=== PATIENT | female | born 1980 | race Caucasian/White ===

== ENCOUNTER → 2018-06-28 15:38 | Outpatient (CLI) | payer OTHER, SELFPAY ==
[2018-06-28 15:56] LABS: Basophils # 0.1 K/mm3 (0-0.2); Basophils % 0.8 % (0.1-2.0); Eosinophils # 0.4 K/mm3 (0.0-0.4); Eosinophils % 4.7 % (0.1-12.0); Hemoglobin 13.4 g/dL (12.2-16.2); Lymphocytes # 2.5 K/mm3 (0.7-4.5); Lymphocytes % 28.7 K/mm3 (10-50); Mean Corpuscular HGB Conc 33.5 g/dL (31.8-35.4); Mean Corpuscular Hemoglobin 31.8 pg (27.0-31.2); Mean Corpuscular Volume 95.1 fl (81-99); Mean Platelet Volume 6.8 fl (7.4-10.4); Monocytes # 0.3 K/mm3 (0.1-1.0); Monocytes % 3.7 % (1.7-9.3); Neutrophils # 5.5 K/mm3 (1.8-7.8); Neutrophils % 62.1 % (37.0-80.0); Platelet Count 236 K/mm3 (142-424); White Blood Count 8.9 K/mm3 (4.8-10.8)
[2018-06-28 18:37] LABS: Alanine Aminotransferase 25 U/L (12-78); Albumin Level 4.1 gm/dL (3.4-5.0); Albumin/Globulin Ratio 1.4 (1.1-1.8); Alkaline Phosphatase 71 U/L (46-116); Anion Gap 15.3 mEq/L (5-15); Bilirubin,Total 0.3 mg/dL (0.2-1.0); Blood Urea Nitrogen 15 mg/dL (7-18); Calcium 8.8 mg/dL (8.5-10.1); Carbon Dioxide 26 mmol/L (21.0-32.0); Chloride 105 mmol/L (98-107); Creatinine,Serum 1.01 mg/dL (0.55-1.02); Estimated Glomerular Filt Rate 61 ml/min (>60); GFR (African American) 74 ML/MIN (>60); Glucose 91 mg/dL (74-106); Sodium 142 mmol/L (136-145); Total Protein,Serum 7.1 gm/dL (6.4-8.2)
[2018-06-28 18:53] LABS: Aspartate Amino Transferase 17 U/L (15-37); Potassium 4.3 mmoL/L (3.5-5.1)
== END ==
PROVIDERS: Visit Provider Pediatrics
DX: Z79.899 Other long term (current) drug therapy (principal); Q82.8 Other specified congenital malformations of skin
CPT/HCPCS: 36415; 80053; 85025

== ENCOUNTER 2019-04-16 16:02 | Emergency (ER) | payer OTHER, SELFPAY ==
[2019-04-16 16:15] VITALS: BP 118/75; PULSE 89; RESP 20; TEMP 37.6; O2SAT 100; BMI 21.7
--- NOTE | 2019-04-16 16:29 | HMH.EDUTC ---
[facility] [place] [facility] [place] Clinical Impression: Cellulitis and abscess of head Disposition: Home, Self-Care Condition on Discharge: Good Instructions: Cellulitis, DI for Cellulitis -- Adult, DI for Skin Abscess, Clindamycin Additional Instructions: *Start antibiotic(s) immediately and be sure to take as ordered for the FULL length of time although you may be feeling better or start to see improvement in the next 24-48 hours *Monitor closely. Outlined redness so that you can monitor easier. Follow up immediately for new or worsening symptoms including but not limited to redness, swelling, streaking from site fever or chills. *Warm compress 15 minutes 3-4 times day *Never squeeze or pop these on your own. Seek immediate medical attention next time this occurs *Monitor Temp. Tylenol every 4 hours as needed and ibuprofen every 6 hours as needed (as long as your primary care doctor has told you that it is ok to take both. For fever, aches, pain. ER if no less that 101 despite Tylenol and ibuprofen Follow up with your family doctor/primary care physician in the next 48-72 hours if no improvement and also follow up for re-evaluation of cellulitis and abscess to make sure that medication is working to clear up the infection Return if needed Straight To ER if you notice and red streaks, fever or worsening of abscess/lesion Prescriptions: Clindamycin HCl [Clindamycin HCl 300mg Cap] 300 mg PO Q6 10 Days #40 cap Referrals: Twan Albarran MD [Referring] - Georgia Garnica MD [Consulting Physician] - Provider,MD Iliana [Primary Care Provider] - As needed (you was given list of accepting doctors, call make appointment and follow up to make sure that medication is clearing the infection) Forms: Work/School Release Time of Disposition: 16:42 Medical Decision Making - Abraham Inquiry Pt receiving controlled substance: No Abraham was queried for this patient: No Vital Signs: 04/16/19 16:15 Temperature 99.7 F H Temperature Source Oral Pulse Rate [Right Brachial] 89 Respiratory Rate 20 Blood Pressure [Right Arm] 118/75 Blood Pressure Mean [Right Arm] 89 Blood Pressure Source [Right Arm] Automatic Cuff Blood Pressure Position [Right Arm] Sitting 02 Sat by Pulse Oximetry 100 Oxygen Delivery Method Room Air [facility] [place] [facility] [place] - General Stated complaint: knot on her neck throbbing Time Seen by Provider: 04/16/19 16:29 Mode of Arrival: Family Vehicle Source of Information: Patient Limitations: No Limitations Description of Symptoms (Recalled from Triage Doc. 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 State that she noticed a small raised area on the back of her head State that it is sore to touch and feeling warm State that has continued to get worse and she noticed some redness behind ear and hurts when it is touched or when she moves her head and it pulls the skin on her head - Related Data Previous Rx's Medication Instructions Recorded Clindamycin HCl [Clindamycin HCl 300 mg PO Q6 10 Days #40 cap 04/16/19 300mg Cap] Allergies Allergy/AdvReac Type Severity Reaction Status Date / Time No Known Allergies Allergy Verified 12/21/18 13:48 - Worker's Comp Is this a Worker's Comp case?: No [facility] History - Hepatitis A Screen Drug use history?: No High risk sexual behaviors?: No History of sexually transmitted infection?: No Currently employed?: No Childcare worker?: No Do you have indoor plumbing?: Yes Do you have electricity?: Yes Attestation statement:: This patient has been screened for Hepati
--- NOTE | 2019-04-16 16:35 | ED_ITS ---
[facility] [place] Clinical Impression: Cellulitis and abscess of head Disposition: Home, Self-Care Condition on Discharge: Good Instructions: Cellulitis, DI for Cellulitis -- Adult, DI for Skin Abscess, Clindamycin Additional Instructions: *Start antibiotic(s) immediately and be sure to take as ordered for the FULL length of time although you may be feeling better or start to see improvement in the next 24-48 hours *Monitor closely. Outlined redness so that you can monitor easier. Follow up immediately for new or worsening symptoms including but not limited to redness, swelling, streaking from site fever or chills. *Warm compress 15 minutes 3-4 times day *Never squeeze or pop these on your own. Seek immediate medical attention next time this occurs *Monitor Temp. Tylenol every 4 hours as needed and ibuprofen every 6 hours as needed (as long as your primary care doctor has told you that it is ok to take both. For fever, aches, pain. ER if no less that 101 despite Tylenol and ibuprofen Follow up with your family doctor/primary care physician in the next 48-72 hours if no improvement and also follow up for re-evaluation of cellulitis and abscess to make sure that medication is working to clear up the infection Return if needed Straight To ER if you notice and red streaks, fever or worsening of abscess/lesion Prescriptions: Clindamycin HCl [Clindamycin HCl 300mg Cap] 300 mg PO Q6 10 Days #40 cap Referrals: Twan Albarran MD [Referring] - Georgia Garnica MD [Consulting Physician] - Provider,MD Iliana [Primary Care Provider] - As needed (you was given list of accepting doctors, call make appointment and follow up to make sure that medication is clearing the infection) Forms: Work/School Release Time of Disposition: 16:42 Medical Decision Making - Abraham Inquiry Pt receiving controlled substance: No Abraham was queried for this patient: No Vital Signs: 04/16/19 16:15 Temperature 99.7 F H Temperature Source Oral Pulse Rate [Right Brachial] 89 Respiratory Rate 20 Blood Pressure [Right Arm] 118/75 Blood Pressure Mean [Right Arm] 89 Blood Pressure Source [Right Arm] Automatic Cuff Blood Pressure Position [Right Arm] Sitting 02 Sat by Pulse Oximetry 100 Oxygen Delivery Method Room Air [facility] [place] - General Stated complaint: knot on her neck throbbing Time Seen by Provider: 04/16/19 16:29 Mode of Arrival: Family Vehicle Source of Information: Patient Limitations: No Limitations Description of Symptoms (Recalled from Triage Doc. 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
[2019-04-16 16:44] VITALS: BP 118/75; PULSE 89; RESP 20; TEMP 37.6; O2SAT 100
== END 2019-04-16 16:47 | disposition home or self-care (01) ==
PROVIDERS: Emergency Provider Nurse Practitioner
DX: L03.811 Cellulitis of head [any part, except face] (principal); F17.210 Nicotine dependence, cigarettes, uncomplicated
CPT/HCPCS: 99201

== ENCOUNTER 2022-04-21 15:50 | Emergency (ER) | payer BC, SELFPAY ==
[2022-04-21 16:10] VITALS: BP 119/75; PULSE 73; RESP 19; TEMP 36.8; O2SAT 100; BMI 21.1
--- NOTE | 2022-04-21 16:54 | HMH.EDUTC ---
[facility] – [place] Disposition Clinical Impression: Vasculitis, Sunburn Disposition: Home, Self-Care Condition on Discharge: Good Instructions: DI for Sunburn, Sunburn, DI for Vasculitis, Silver Sulfadiazine Additional Instructions: Cool compresses on chest and back may help with pain from sunburn Elevate legs when sitting to help with swelling Take medication as prescribed Start oral steriods Return if needed Straight to ER if any life threatening symptoms Follow up with your Family Doctor if no improvement or any worsening of symptoms Prescriptions: cephALEXin [cephALEXin 500mg capsule*] 500 mg PO Q8H 7 Days #21 cap Transmission Status: Pending to [id number] methylPREDNISolone [Medrol 4mg tab] 4 mg PO DIRECTED #21 tab Transmission Status: Pending to [id number] Silver Sulfadiazine [Silvadene Cream 400gm] 1 applic TP BID #400 gm Transmission Status: Pending to [id number] Referrals: Troy Whaley MD [Primary Care Provider] - As needed Forms: Work/School Release Time of Disposition: 17:08 Medical Decision Making - Abraham Inquiry Pt receiving controlled substance: No Abraham was queried for this patient: No Vital Signs: 04/21/22 16:10 Temperature 98.3 F Temperature Source Oral Pulse Rate [Right Brachial] 73 Respiratory Rate 19 Blood Pressure [Right Arm] 119/75 Blood Pressure Mean [Right Arm] 89 Blood Pressure Source [Right Arm] Automatic Cuff Blood Pressure Position [Right Arm] Sitting 02 Sat by Pulse Oximetry 100 Oxygen Delivery Method Room Air Medical Decision Narrative: medication discussed and dosed per pharmacy [facility] [place] HPI - General Stated complaint: possible sun poison Time Seen by Provider: 04/21/22 16:54 Mode of Arrival: Ambulatory Source of Information: Patient Limitations: No Limitations Description of Symptoms (Recalled from Triage Doc. by RN): PATIENT REPORTS A SUNBURN THAT HAPPENED OVER THE WEEKEND. C/O BLISTERS TO CHEST, BACK AND LEGS, AND RASH TO BILATERAL LOWER LEGS AND ANKLES. HEENT Symptoms (Recalled from RN notes): No Resp Symptoms (Recalled from RN notes): No Skin Symptoms (Recalled from RN notes): Yes MS Symptoms (Recalled from RN notes): No Functional Status (Recalled from RN notes): WNL - History of Present Illness Provider Complaint: Patient states that she was out in the sun over the weekend and got bad sunburn States that she has blisters on her chest and back also has red rash on bilateral lower extremities with some mild swelling - Related Data Previous Rx's Medication Instructions Recorded Silver Sulfadiazine [Silvadene 1 applic TP BID #400 gm 04/21/22 Cream 400gm] cephALEXin [cephALEXin 500mg 500 mg PO Q8H 7 Days #21 cap 04/21/22 capsule*] methylPREDNISolone [Medrol 4mg 4 mg PO DIRECTED #21 tab 04/21/22 tab] Allergies Allergy/AdvReac Type Severity Reaction Status Date / Time No Known Allergies Allergy Verified 12/21/18 13:48 - Worker's Comp Is this a Worker's Comp case?: No [facility] History - Hepatitis A Screen Attestation statement:: This patient has been screened for Hepatitis A risk factors. 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 2004- Lap Cholecystectomy. 2006- Primary . 2008- D&E. 2013- Repeat , PPBTL. 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
[2022-04-21 17:15] VITALS: BP 119/75; PULSE 73; RESP 19; TEMP 36.8; O2SAT 100
== END 2022-04-21 17:18 | disposition home or self-care (01) ==
PROVIDERS: Emergency Provider Nurse Practitioner; PCP Family Medicine
DX: L95.9 Vasculitis limited to the skin, unspecified (principal)
CPT/HCPCS: 99212; G0463

== ENCOUNTER 2023-12-14 10:39 | Emergency (ER) | payer BC, SELFPAY ==
[2023-12-14 11:00] VITALS: BP 122/69; PULSE 78; RESP 19; TEMP 36.9; O2SAT 98; BMI 25.8
--- NOTE | 2023-12-14 11:09 | ED_ITS ---
Discharge Plan Disposition Patient Disposition: Home, Self-Care Condition: Good Prescriptions Prescriptions: New amoxicillin 500 mg capsule 500 mg PO BID 10 Days Qty: 20 0RF Referrals Follow up/Referrals: Provider,Referral, MD [Primary Care Provider] - See instructions Activity Restrictions/Add. Instructions Additional Instructions/Restrictions: *Monitor Temp, Over the counter Motrin or Tylenol as directed/as needed Tylenol every 4 hours and Motrin every 6 hours (as long as your family doctor has told you that you can take it) for fever or pain. and straight to ER if unable to lower temp less than 101.0 after medication given *Warm salt water gargles may help to soothe the throat *Throat Lozenges? *Warm fluids like tea with honey may help to soothe the throat? *Sleep elevated *Humidifier/Vaporizer *If you did not take Penicillin shot or was unable to, start taking antibiotic immediately and make sure that you take it for the FULL length of time although you should start to feel better in 24-48 hours *change toothbrush and toothpaste 24-48 hours after starting to take antibiotics so you do not reinfect yourself Monitor Temp. Tylenol and/or Ibuprofen as needed. ER if fever is no less than 101 despite alternating Tylenol and Ibuprofen * Encourage fluids, water, Gatorade, powerade, pedialyte if infant/toddler/or child *Cold fluids, popsicles and ice cream may feel good on his throat Follow up IMMEDIATELY for new or worsening symptoms or no Noticeable improvement over the next 48-72 hours. 911 for difficulty breathing or swallow ing Clinical Impressions Clinical Impression: Strep throat Instructions Patient Instructions: DI for Strep Throat, Strep Throat Discharge ED Provider[place]i Mar[place] [facility] [place] General Stated complaint: sore throat Mode of Arrival: Ambulatory Source of Information: Patient Limitations: No Limitations Time Seen by Provider: 12/14/23 11:09 Description of Symptoms (Recalled from Triage Doc. by RN): PATIENT C/O SORE THROAT SINCE YESTERDAY HEENT Symptoms (Recalled from RN notes): Yes Resp Symptoms (Recalled from RN notes): No Skin Symptoms (Recalled from RN notes): No MS Symptoms (Recalled from RN notes): No Functional Status (Recalled from RN notes): WNL History of Present Illness Provider Complaint: Patient states that she started yesterday with very bad sore throat States that it feels like she is swallowing glass States today it was still hurting so she came in to get checked worried she may have strep throat Related Data Previous Rx's Medication Instructions Recorded amoxicillin 500 mg capsule 500 mg PO BID 10 days #20 caps 12/14/23 Allergies Allergy/AdvReac Type Severity Reaction Status Date / Time No Known Allergies Allergy Verified 12/21/18 13:48 Worker's Comp Is this a Worker's Comp case?: No [facility] Disclaimer: The information contained in this section may have been updated after the patient was seen, as this information can be updated by other users. Social History Smoking Status: Current every day smoker tobacco type: cigarettes packs per day: 1 alcohol intake: never current occupational status: employed Travel in the last 8 weeks: None household members: family housing: house ROS Obtained: Yes All systems reviewed & no additional complaints except as documented and Yes Systems reviewed as appropriate & no additional complaints except as documented Constitutional Constitutional: Reports system reviewed and no additional complaints, except as documented and Reports as per HPI ENT Ears, Nose, Mouth, and Throat: Reports system reviewed and no additional complaints, except as documented, Reports as per HPI and Reports sore throat Cardiovascular Cardiovascular: Reports system reviewed and no additional complaints, except as documented and Reports as per HPI Respiratory Respiratory: Reports system reviewed and no additional complaints, except as documented and Reports as per HPI Gastrointestinal Gastrointestingal: Reports system reviewed and no additional complaints, except as documented and as per HPI Physical Exam General General appearance: alert and in no apparent distress ENT ENT exam: Present mucous membranes moist Expanded ENT Exam Throat exam: Present tonsillar erythema Respiratory Respiratory exam: Present normal lung sounds bilaterally; Absent respiratory distress or wheezes Cardiovascular Cardiovascular exam: Present regular rate, normal rhythm and normal heart sounds Neurological Exam Neurological exam: Present alert, oriented X3 and normal gait Medical Decision Making Abraham Inquiry Pt receiving controlled substance: No Abraham was queried for this patient: No Vital Signs: 12/14/23 11:00 Temperature 98.4 F Temperature Source Oral Pulse Rate [Left Brachial] 78 Respiratory Rate 19 Blood Pressure [Left Arm] 122/69 Blood Pressure Mean [Left Arm] 86 Blood Pressure Source [Left Arm] Automatic Cuff Blood Pressure Position [Left Arm] Sitting 02 Sat by Pulse Oximetry 98 Oxygen Delivery Method Room Air Lab Data Lab results reviewed: Yes I reviewed the patient's lab results.
[2023-12-14 11:24] VITALS: BP 122/69; PULSE 78; RESP 19; TEMP 36.9; O2SAT 98
[2023-12-14 11:28] LABS: UTC Strep Screen (Rapid) Positive (Negative)
== END 2023-12-14 11:26 | disposition home or self-care (01) ==
PROVIDERS: Emergency Provider Nurse Practitioner
DX: J02.0 Streptococcal pharyngitis (principal); F17.210 Nicotine dependence, cigarettes, uncomplicated
CPT/HCPCS: 87880; 99212; 99214; G0463

== ENCOUNTER 2024-07-12 13:08 | Emergency (ER) | payer BC, SELFPAY ==
[2024-07-12 14:38] VITALS: BP 160/100; PULSE 69; RESP 16; TEMP 37; O2SAT 100; BMI 21.9
--- NOTE | 2024-07-12 14:43 | EXP.UTC ---
Discharge Plan Disposition Patient Disposition: Home, Self-Care Condition: Good Prescriptions Prescriptions: New omeprazole 20 mg capsule,delayed release(DR/EC) 20 mg PO DAILY Qty: 30 0RF sucralfate [Carafate] 1 gram tablet 1 g PO QIDP PRN (Reason: abdominal pain) Qty: 60 0RF ondansetron 4 mg Tablet,Disintegrating 4 mg PO Q8H PRN (Reason: Nausea) Qty: 12 0RF No Action amoxicillin 500 mg capsule 500 mg PO BID 10 Days Qty: 20 0RF Referrals Follow up/Referrals: Provider,Referral, MD [Primary Care Provider] - See instructions Activity Restrictions/Add. Instructions Additional Instructions/Restrictions: Drink plenty of fluids. Take tylenol for pain or fever. Take the medications as directed. Follow up with your regular doctor. GO TO THE ER FOR ANY WORSENING SYMPTOMS Clinical Impressions Clinical Impression: Abdominal pain, Gastritis Stand Alone Forms Stand Alone Forms: Work/School Release Instructions Patient Instructions: DI for Gastritis, Sucralfate, Omeprazole Print Language Print Language: Tajik Discharge ED Provider: Noe Hankins [facility] General Stated complaint: abd Pain Mode of Arrival: Ambulatory Source of Information: Patient Limitations: No Limitations Time Seen by Provider: 07/12/24 14:43 Description of Symptoms (Recalled from Triage Doc. by RN): c/o upper right abdomen pain that goes into her right back for 2.5 weeks with some nausea. Pt reports that it feels like a gallbladder attack butr she doesnt have a gallbladder. Denies any urination problems HEENT Symptoms (Recalled from RN notes): No Resp Symptoms (Recalled from RN notes): No Skin Symptoms (Recalled from RN notes): No MS Symptoms (Recalled from RN notes): No Functional Status (Recalled from RN notes): wnl History of Present Illness Provider Complaint: She c/o epigastric abdominal pain and tenderness intermittently for the past 2 weeks. She has had nausea, but she vomiting and diarrhea. Related Data Previous Rx's ?Medication ?Instructions ?Recorded amoxicillin 500 mg capsule 500 mg PO BID 10 days #20 caps 12/14/23 omeprazole 20 mg capsule,delayed 20 mg PO DAILY #30 caps 07/12/24 release ondansetron 4 mg disintegrating 4 mg PO Q8H PRN Nausea #12 tabs 07/12/24 tablet sucralfate 1 gram tablet (Carafate) 1 g PO QIDP PRN abdominal pain #60 07/12/24 tabs Allergies Allergy/AdvReac Type Severity Reaction Status Date / Time No Known Allergies Allergy Verified 12/21/18 13:48 Worker's Comp Is this a Worker's Comp case?: No [facility] Disclaimer: The information contained in this section may have been updated after the patient was seen, as this information can be updated by other users. Social History Smoking Status: Current every day smoker tobacco type: cigarettes packs per day: 1 alcohol intake: never current occupational status: employed Travel in the last 8 weeks: None household members: family housing: house ROS Obtained: Yes All systems reviewed & no additional complaints except as documented Constitutional Constitutional: Denies chills, Denies fever(s) and Reports poor appetite ENT Ears, Nose, Mouth, and Throat: Denies dizziness and Denies sore throat Cardiovascular Cardiovascular: Denies dyspnea Respiratory Respiratory: Denies chest congestion, Denies cough and Denies dyspnea Gastrointestinal Gastrointestingal: Reports as per HPI Genitourinary Female Genitourinary: Denies difficulty voiding, Denies dysuria, Denies hematuria, Denies urinary frequency, Denies urinary incontinence, Denies urinary hesitancy and Denies urinary urgency Musculoskeletal Musculoskeletal: Denies arthralgias Integumentary/Breasts Skin/Breast: Denies rash Neurologic Neurologic: Denies dizziness Physical Exam General General appearance: alert and in no apparent distress Head Head exam: atraumatic and normocephalic Eye Eye exam: Present normal appearance, PERRL and EOMI ENT EN
[2024-07-12 15:04] LABS: Apearance,Urine Clear (Clear); Bilirubin,Urine Negative (Negative); Blood, Urine Trace (Negative); Color,Urine Amber (Yellow); Glucose,Urine (UA) Negative (Negative); Ketones,Urine Negative (Negative); Protein,Urine Negative (Negative); Specific Gravity, Urine 1.025 (1.005-1.030); UTC Leukocyte Esterase,Urine Negative (Negative); Urobilinogen,Urine 0.2 EU/dl (0.2)
[2024-07-12 15:05] LABS: UTC Nitrate,Urine Negative (Negative)
[2024-07-12 16:30] LABS: Basophils # 0.1 K/mm3 (0-0.2); Basophils % 1.5 % (0.1-2.0); Eosinophils # 0.2 K/mm3 (0.0-0.4); Eosinophils % 2.7 % (0.1-12.0); Hematocrit 45.6 % (37.0-47.0); Hemoglobin 14.3 g/dL (12.2-16.2); Lymphocytes # 2.4 K/mm3 (0.7-4.5); Lymphocytes % 27.6 % (10-50); Mean Corpuscular HGB Conc 31.4 g/dL (31.8-35.4); Mean Corpuscular Hemoglobin 31.9 pg (27.0-31.2); Mean Corpuscular Volume 101.4 fl (81-99); Mean Platelet Volume 8.2 fl (7.4-10.4); Monocytes # 0.4 K/mm3 (0.1-1.0); Monocytes % 4.8 % (1.7-9.3); Neutrophils # 5.6 K/mm3 (1.8-7.8); Neutrophils % 63.5 % (37.0-80.0); Platelet Count 236 K/mm3 (142-424); Red Cell Distribution Width 13.8 % (11.5-17.5); White Blood Count 8.8 K/mm3 (4.8-10.8)
[2024-07-12 16:31] LABS: Albumin Level 4.8 g/dl (3.5-5.0); Chloride 108 mmol/L (98-107); Sodium 140 mmol/L (136-145)
[2024-07-12 16:34] LABS: Alanine Aminotransferase 20 U/L (12-78); Albumin/Globulin Ratio 1.7 (1.1-1.8); Alkaline Phosphatase 70 U/L (38-126); Amylase 65 U/L (30-110); Aspartate Amino Transferase 33 U/L (14-36); Bilirubin,Total 0.5 mg/dl (0.2-1.3); Blood Urea Nitrogen 11 mg/dl (7-17); Calcium 9.3 mg/dl (8.4-10.2); Carbon Dioxide 26 mmol/L (22.0-30.0); Creatinine Clearance Estimated 79 mL/min (50-200); Estimated Glomerular Filt Rate 68 ml/min (>60); GFR (African American) 82 ML/MIN (>60); Globulin 2.9 g/dL (1.3-3.2); Glucose 108 mg/dl (74-100); Lipase 66 U/L (23-300); Total Protein,Serum 7.7 g/dl (6.3-8.2)
[2024-07-12 16:59] VITALS: BP 160/100; PULSE 69; RESP 16; TEMP 37; O2SAT 100
--- NOTE | 2024-07-16 10:50 | PC.NURSE ---
URINE CULTURE REVIEWED BY Neha COLEMAN APRN. ANTIBIOTIC CHANGE NEEDED. AUGMENTIN SENT IN TO PHARMACY FOR PATIENT. PATIENT NOTIFIED OF CHANGE BY Neha COLEMAN APRN.
== END 2024-07-12 17:15 | disposition home or self-care (01) ==
PROVIDERS: Emergency Provider Nurse Practitioner Family
DX: R10.13 Epigastric pain (principal); N39.0 Urinary tract infection, site not specified; B95.4 Other streptococcus as the cause of diseases classified elsewhere; K29.70 Gastritis, unspecified, without bleeding; R11.0 Nausea
CPT/HCPCS: 80053; 81003; 82150; 83690; 85025; 87086; 87088; 87186; 99212; 99214; G0463